=== PATIENT | male | born 1960 | race Caucasian/White ===

== ENCOUNTER 2024-05-11 10:18 | Emergency (ER) | payer MEDICAID ==
[~2024-05-11] VITALS: Ht 177.8 cm; Wt 81.8 kg
[2024-05-11 10:28] VITALS: TEMP 98
[2024-05-11 11:20] LABS: BASOPHILS % (AUTO) 0.9 % (0.0-2.0); EOSINOPHILS % (AUTO) 3.2 % (1.0-6.0); HEMOGLOBIN 12.7 g/dL (13.5-17.5); LYMPHOCYTES # (AUTO) 1.3 K/uL (1.0-4.8); LYMPHOCYTES % (AUTO) 16.5 % (22.0-44.0); MEAN CORPUSCULAR HEMOGLOBIN 28.7 pg (26.0-34.0); MEAN CORPUSCULAR HGB CONC 32.6 G/dL (31.0-37.0); MEAN CORPUSCULAR VOLUME 88 fL (80-100); MONOCYTES # (AUTO) 0.6 K/uL (0.1-1.0); MONOCYTES % (AUTO) 7.2 % (2.0-9.0); NEUTROPHILS # (AUTO) 5.6 K/uL (1.8-7.7); NEUTROPHILS % (AUTO) 72.2 % (40.0-70.0); PLATELET COUNT (AUTO) 181 K/uL (150-450); RED BLOOD CELL COUNT(AUTO) 4.42 MIL/uL (4.50-5.90); RED CELL DISTRIBUTION WIDTH 14.1 % (11.5-14.5); WHITE BLOOD COUNT (AUTO) 7.8 K/uL (4.5-11.0)
[2024-05-11] MEDS: BACITRACIN 28 GM OINTMENT TP ONE (11:25)
[2024-05-11 11:39] LABS: ANION GAP 6 mmol/L (8-16); CALCIUM, TOTAL 8.6 mg/dL (8.8-10.5); CARBON DIOXIDE 28 mmol/L (22-29); CHLORIDE 105 mmol/L (98-107); CREATININE 0.83 mg/dL (0.60-1.30); GLOMERULAR FILTR. RATE CALC > 60 mL/min (>60); GLUCOSE,RANDOM 112 mg/dL (70-110); POTASSIUM 3.9 mmol/L (3.5-5.1); SODIUM SERUM 139 mmol/L (136-145); UREA NITROGEN, BLOOD 19 mg/dL (7-18)
[2024-05-11 12:00] LABS: APPEARANCE,URINE CLEAR (CLEAR); BILIRUBIN,URINE NEGATIVE (NEGATIVE); COLOR,URINE YELLOW (YELLOW); GLUCOSE, URINE (UA) NEGATIVE (NEGATIVE); KETONES,URINE NEGATIVE (NEGATIVE); LEUKOCYTE ESTERASE ,URINE NEGATIVE (NEGATIVE); NITRATE,URINE NEGATIVE (NEGATIVE); OCCULT BLOOD,URINE SMALL (NEGATIVE); PH,URINE 5.5 (5.0-8.0); PROTEIN,URINE TRACE mg/dL (NEGATIVE); SPECIFIC GRAVITIY, URINE 1.031 (1.003-1.030)
[2024-05-11 12:30] LABS: BACTERIA,URINE None Seen /HPF (None Seen); WBC,URINE None Seen /HPF (0-5)
[2024-05-11 12:31] LABS: CALCIUM OXALATE CRYSTALS,UR Many /LPF (None Seen)
[2024-05-11] MEDS ORDERED: BACI28.410 TP (13:04)
[2024-05-11 13:10] VITALS: BP 154/85; PULSE 91; RESP 16
== END 2024-05-11 13:20 | disposition home or self-care (01) ==
LOC: EMS 10:18
DX: I87.2 Venous insufficiency (chronic) (peripheral) (principal); E86.0 Dehydration; Z59.00 Homelessness unspecified; Z79.899 Other long term (current) drug therapy
CPT/HCPCS: 80048; 81001; 85025; 99283

== ENCOUNTER 2025-08-14 03:28 | Emergency (ER) | payer MEDICAID ==
[~2025-08-14 03:28] MED LIST: BACI28.410 TP
== END 2025-08-14 03:48 | disposition left against medical advice (07) ==
LOC: EMS 03:28
DX: Z53.21 Procedure and treatment not carried out due to patient leaving prior to being seen by health care provider (principal)

== ENCOUNTER 2025-09-06 21:14 | Inpatient (IN) | payer MEDICAID ==
[~2025-09-06] VITALS: Ht 175.3 cm; Wt 84.1 kg
[2025-09-06 22:14] LABS: PLATELET COUNT (AUTO) 374 K/uL (150-450); RED BLOOD CELL COUNT(AUTO) 4.11 MIL/uL (4.50-5.90); RED CELL DISTRIBUTION WIDTH 13.5 % (11.5-14.5); WHITE BLOOD COUNT (AUTO) 7.6 K/uL (4.5-11.0)
[2025-09-06 22:23] LABS: CALCIUM, TOTAL 7.8 mg/dL (8.8-10.5); CREATININE 0.65 mg/dL (0.60-1.30); GLOMERULAR FILTR. RATE CALC > 60 mL/min (>60); GLUCOSE,RANDOM 109 mg/dL (70-110); SODIUM SERUM 136 mmol/L (136-145); UREA NITROGEN, BLOOD 13 mg/dL (7-18)
[2025-09-06 22:31] LABS: LACTIC ACID 1.9 mmol/L (0.4-2.0)
[2025-09-06] MEDS: VANCOMYCIN 1GM/WATER(PEG/NADA) 200 ML IV ONE (23:13)
[2025-09-06] MEDS: SODIUM CHLORIDE 0.9% 1,000 ML IV ONE (23:13)
[2025-09-06] MEDS ORDERED: IOHEXOL 300 MG/ML 100 ML VIAL ONE (23:29)
[2025-09-06] MEDS ORDERED: SODIUM CHLORIDE 0.9% 100 ML ONE (23:29)
[2025-09-07] MEDS ORDERED: ONDANSETRON HCL 4 MG/2 ML VIAL IVP PRN (00:45)
[2025-09-07] MEDS ORDERED: BISACODYL 10 MG RECTAL RECTAL SUPPOSITORY PR PRN (00:45)
[2025-09-07] MEDS ORDERED: ZOLPIDEM TARTRATE 5 MG TABLET PO PRN (00:45)
[2025-09-07] MEDS ORDERED: MAGNESIUM HYDROXIDE SUSPENSION 30 ML UDCUP PO PRN (00:45)
[2025-09-07 01:29] LABS: APPEARANCE,URINE CLEAR (CLEAR); GLUCOSE, URINE (UA) NEGATIVE (NEGATIVE); LEUKOCYTE ESTERASE ,URINE NEGATIVE (NEGATIVE); NITRATE,URINE NEGATIVE (NEGATIVE); OCCULT BLOOD,URINE NEGATIVE (NEGATIVE); SPECIFIC GRAVITIY, URINE 1.015 (1.003-1.030)
[2025-09-07 02:33] VITALS: BP 154/97; PULSE 89; RESP 19; TEMP 97.9; O2SAT 99
[2025-09-07 07:48] VITALS: BP 147/83; PULSE 87; RESP 18; TEMP 97.9; O2SAT 100
[2025-09-07] MEDS: HEPARIN SODIUM,PORCINE 5,000 UNITS/ML VIAL SQ SCH (08:00)
[2025-09-07] MEDS: DOCUSATE SODIUM 100 MG CAPSULE PO SCH (09:00)
[2025-09-07] MEDS: PANTOPRAZOLE SODIUM 40 MG DR TABLET PO SCH (09:00)
[2025-09-07 15:25] VITALS: BP 135/77; PULSE 80; RESP 18; TEMP 98.2; O2SAT 100
[2025-09-07] MEDS: VANCOMYCIN 1.5 GM/WATER(PEG) 300 ML IV ONE (15:47)
[2025-09-07] MEDS: FUROSEMIDE 20 MG/2 ML VIAL IVP ONE (15:48)
[2025-09-07] MEDS ORDERED: SODIUM CHLORIDE 0.9% 250 ML IV ONE (15:56)
[2025-09-07] MEDS: MORPHINE SULFATE 4 MG/ML SYRINGE IVP PRN (16:00)
[2025-09-07 19:18] VITALS: BP 124/75; PULSE 90; RESP 18; TEMP 98.6; O2SAT 97
[2025-09-07] MEDS: VANCOMYCIN 1GM/WATER(PEG/NADA) 200 ML IV SCH (23:45)
[2025-09-08 05:01] VITALS: BP 126/71; PULSE 86; RESP 18; TEMP 98.2; O2SAT 97
[2025-09-08 07:47] LABS: CALCIUM, TOTAL 7.9 mg/dL (8.8-10.5); CREATININE 0.55 mg/dL (0.60-1.30); GLOMERULAR FILTR. RATE CALC > 60 mL/min (>60); GLUCOSE,RANDOM 116 mg/dL (70-110); SODIUM SERUM 138 mmol/L (136-145); UREA NITROGEN, BLOOD 10 mg/dL (7-18)
[2025-09-08 08:00] VITALS: BP 112/53; PULSE 88; RESP 18; TEMP 98.2; O2SAT 100
[2025-09-08] MEDS ORDERED: VANCOMYCIN 1GM/WATER(PEG/NADA) 200 ML IV SCH (08:00)
[2025-09-08] MEDS: FUROSEMIDE 40 MG/4 ML VIAL IVP ONE (09:43)
[2025-09-08 16:00] VITALS: BP 134/70; PULSE 78; RESP 18; TEMP 98.1; O2SAT 100
[2025-09-08] MEDS: HYDROCODONE/ACETAMINOPHEN 5-325 MG TABLET PO PRN (16:57)
[2025-09-08 20:00] VITALS: BP 130/68; PULSE 82; RESP 18; TEMP 98.4; O2SAT 99
[2025-09-08] MEDS ORDERED: SPIRONOLACTONE 25 MG TABLET PO SCH (21:15)
[2025-09-08] MEDS: FUROSEMIDE 40 MG TABLET PO ONE (21:18)
[2025-09-08] MEDS: LINEZOLID 600 MG TABLET PO SCH (21:18)
[2025-09-08] MEDS: ASPIRIN 81 MG CHEWABLE TABLET PO SCH (21:27)
[2025-09-08] MEDS: POTASSIUM CHLORIDE 20 MEQ ER TABLET PO ONE (21:27)
[2025-09-08] MEDS: SACUBITRIL/VALSARTAN 24-26 MG TABLET PO SCH (21:27)
[2025-09-08] MEDS: ATORVASTATIN CALCIUM 40 MG TABLET PO SCH (21:27)
[2025-09-09 04:00] VITALS: BP 123/66; PULSE 77; RESP 18; TEMP 98.8; O2SAT 97
[2025-09-09 08:20] VITALS: BP 136/75; PULSE 73; RESP 18; TEMP 98.1; O2SAT 97
[2025-09-09] MEDS: FUROSEMIDE 40 MG TABLET PO SCH (08:36)
[2025-09-09] MEDS: EMPAGLIFLOZIN 10 MG TABLET PO SCH (08:36)
[2025-09-09] MEDS: ACETAMINOPHEN 325 MG TABLET PO PRN (08:37)
[2025-09-09 09:02] LABS: PLATELET COUNT (AUTO) 343 K/uL (150-450); RED BLOOD CELL COUNT(AUTO) 4.86 MIL/uL (4.50-5.90); RED CELL DISTRIBUTION WIDTH 13.3 % (11.5-14.5); WHITE BLOOD COUNT (AUTO) 7.9 K/uL (4.5-11.0)
[2025-09-09 09:10] LABS: CALCIUM, TOTAL 8.2 mg/dL (8.8-10.5); CREATININE 0.79 mg/dL (0.60-1.30); GLOMERULAR FILTR. RATE CALC > 60 mL/min (>60); GLUCOSE,RANDOM 152 mg/dL (70-110); SODIUM SERUM 136 mmol/L (136-145); UREA NITROGEN, BLOOD 16 mg/dL (7-18)
[2025-09-09] MEDS: CEPHALEXIN MONOHYDRATE 500 MG CAPSULE PO SCH (10:49)
[2025-09-09] MEDS: HYDROCODONE/ACETAMINOPHEN 5-325 MG TABLET PO PRN (10:49)
[2025-09-09] MEDS ORDERED: CEPH-558 PO (14:47)
[2025-09-09] MEDS ORDERED: SACUBITRIL PO (14:47)
[2025-09-09] MEDS ORDERED: ATOR40TA71 PO (14:47)
[2025-09-09] MEDS ORDERED: CARV3 PO (14:47)
[2025-09-09] MEDS ORDERED: EMPA10TA3 PO (14:47)
[2025-09-09] MEDS ORDERED: FURO40TA5 PO (14:47)
[2025-09-09] MEDS ORDERED: ASPI-1450 PO (14:47)
[2025-09-09] MEDS ORDERED: HYDR-4062 PO (14:47)
[2025-09-09] MEDS ORDERED: VALSARTAN PO (14:47)
[2025-09-09] MEDS ORDERED: NALO4SPR NASAL (14:49)
== END 2025-09-09 17:46 | disposition left against medical advice (07) | DRG 194 ==
LOC: EMS 21:14 → EDH 09-07 00:39 → 4E 09-07 02:18
PROVIDERS: ADMIT Internal Medicine; ATTEND Internal Medicine
DX: I50.43 Acute on chronic combined systolic (congestive) and diastolic (congestive) heart failure (principal); L03.115 Cellulitis of right lower limb; B18.2 Chronic viral hepatitis C; Z53.29 Procedure and treatment not carried out because of patient's decision for other reasons; Z86.11 Personal history of tuberculosis; Z79.899 Other long term (current) drug therapy
CPT/HCPCS: 71045; 73700; 80048; 80202; 81003; 83605; 83735; 83880; 85025; 87040; 87070; 87186; 87205; 93306; 93926; 93971; 96361; 96365; 96366; 97116; 97162; 99285; G0378; J1644; J1938; J2270; J7050; Q9967; 36415-L1; 36415-TC